=== PATIENT | female | born 1990 | race Caucasian/White ===

== ENCOUNTER 2016-11-02 01:10 | Inpatient (IN) | payer OTHER ==
[~2016-11-02] VITALS: Ht 167.6 cm; Wt 65.0 kg
[~2016-11-02 01:10] MED LIST: BENZTROPINE MESY1 MG PO; BUPROPION HCL100 M1 PO; DEPAKOTE500 MG PO; DESYREL100 MG PO; DIVALPROEX SOD500 MG PO; PRAZOSIN HCL2 MG PO; PROPRANOLOL HCL10 MG PO; RISPERDAL2 MG PO; THORAZINE50 MG PO; WELLBUTRIN SR100 MG PO; risperDAL PO
[2016-11-02 01:38] LABS: EOSINOPHIL COUNT 0.1 K/uL (0-0.3); IMMATURE GRANULOCYTE (%) 0.3 % (0.0-0.7); INSTRUMENT ABS NEUTROPHIL CT 7.1 K/uL; MCH 30.7 PG (29.0-34.0); MCHC 32.8 G/DL (30.0-36.0); MCV 93.8 FL (83-99); MEAN PLAT.VOLUME 8.6 uM^3 (9.5-12.4); MONOCYTE (%) 5.9 % (3-12); MONOCYTE COUNT 0.6 K/uL (0-0.8); NEUTROPHIL (%) 72.1 % (45-76); NEUTROPHIL COUNT 7.1 K/uL (1.8-6.4); PLATELET COUNT 291 K/uL (156-360); RBC DIS.WIDTH-CV 12.6 % (11.8-14.6); RBC DIS.WIDTH-SD 43.3 % (39-53); RED BLOOD COUNT 3.84 M/uL (3.80-5.20); WHITE BLOOD COUNT 9.8 K/uL (4.1-10.2)
[2016-11-02 01:49] LABS: CHLORIDE 107 mEq/L (99-109); POTASSIUM 3.2 mEq/L (3.7-5.4); SODIUM 141 mEq/L (136-147)
[2016-11-02 01:52] LABS: GLUCOSE 134 mg/dL (70-99)
[2016-11-02 01:53] LABS: ANION GAP 12 MEQ/L (2-14); TOTAL BILIRUBIN 0.3 mg/dL (0.0-1.0)
[2016-11-02 01:55] LABS: GFR ESTIMATE (CALCULATED) > 59 mL/min/; SERUM ETHYL ALCOHOL < 10 mg/dL
[2016-11-02 01:56] LABS: ALKALINE PHOSPHATASE 115 IU/L (3-129)
[2016-11-02 01:57] LABS: UREA NITROGEN (BUN) 19 mg/dL (9-23)
[2016-11-02 01:59] LABS: SALICYLATE < 5.0 MG/DL (15-30)
[2016-11-02 02:05] LABS: QUANTITATIVE HCG < 4.0 MIU/ML
[2016-11-02 05:29] LABS: ADD MIUA? YES; BILIRUBIN NEGATIVE; BLOOD NEGATIVE; COLOR YELLOW ((YELLOW)); GLUCOSE (STRIP) NEGATIVE; KETONES NEGATIVE; LEUKOCYTES SMALL; NITRITE NEGATIVE; PROTEIN (STRIP) NEGATIVE; SPECIFIC GRAVITY 1.021 (1.000-1.030); UROBILINOGEN 0.2 MG/DL (0.2-1.0)
[2016-11-02 05:35] LABS: BACTERIA NONE SEEN /HPF; EPITHELIAL CELLS RARE /HPF; MUCUS NONE SEEN /LPF; RED BLOOD CELLS 0-5 /HPF (0-5); UCUL ADDED? NO; WHITE BLOOD CELLS 0-5 /HPF (0-5)
[2016-11-02 05:38] LABS: ADD MEDTOX COMMENT Y; AMPHETAMINE NEGATIVE (500 ng/mL); BARBITURATES NEGATIVE (200 ng/mL); BENZODIAZEPINES NEGATIVE (150 ng/mL); COCAINE NEGATIVE (150 ng/mL); INTERNAL CONTROLS VALID? YES; METHADONE NEGATIVE (200 ng/mL); METHAMPHETAMINE NEGATIVE (500 ng/mL); OPIATES (MORPHINE) NEGATIVE (100 ng/mL); OXYCODONE NEGATIVE (100 ng/mL); PHENCYCLIDINE NEGATIVE (25 ng/mL); PROPOXYPHENE NEGATIVE (300 ng/mL); THC CANNABINOIDS PRESUMPTIVE POSITIVE (50 ng/mL); TRICYCLIC ANTIDEPRESSANTS NEGATIVE (300 ng/mL)
[2016-11-02 05:53] VITALS: BP 118/82
[2016-11-02 06:18] VITALS: BP 118/82
[2016-11-02 07:44] VITALS: BP 104/55
[2016-11-04 15:24] VITALS: BP 134/68
[2016-11-05 07:34] VITALS: BP 98/50
== END 2016-11-05 13:11 | disposition home or self-care (01) | DRG 885 ==
LOC: EME → EDBD 01:10 → 1WEST 04:08 → EDOF 04:08 → 1WEST 05:44
PROVIDERS: Emergency Medicine
DX: F20.0 Paranoid schizophrenia (principal); F12.90 Cannabis use, unspecified, uncomplicated; Z59.0 Homelessness; F17.210 Nicotine dependence, cigarettes, uncomplicated; F19.10 Other psychoactive substance abuse, uncomplicated; R45.850 Homicidal ideations
CPT/HCPCS: 80053; 81003; 84702; 84999; 85025; 90837; 93005; 97166 GO; 99281; 99285; G0480; J1630; J2060

== ENCOUNTER 2017-05-22 04:19 | Emergency (ER) | payer SELFPAY ==
[~2017-05-22] VITALS: Ht 167.6 cm; Wt 57.8 kg
[2017-05-22 06:28] VITALS: BP 110/68
== END 2017-05-22 06:29 | disposition home or self-care (01) ==
LOC: EME 04:19
DX: F10.129 Alcohol abuse with intoxication, unspecified (principal); F25.9 Schizoaffective disorder, unspecified; F17.200 Nicotine dependence, unspecified, uncomplicated
CPT/HCPCS: 99281; 99285